=== PATIENT | male | born 1985 | race Caucasian/White ===

== ENCOUNTER 2017-07-27 09:31 | Emergency (ER) | payer OTHER ==
[2017-07-27 09:52] VITALS: TEMP 97.9
[2017-07-27 10:31] LABS: URINE BILIRUBIN NEGATIVE (NEGATIVE); URINE BLOOD NEGATIVE (NEGATIVE); URINE CLARITY Clear (Clear); URINE COLOR Yellow (YELLOW); URINE GLUCOSE (UA) NORMAL (Normal); URINE LEUKOCYTE ESTERASE NEG Leu/uL (Negative); URINE NITRATE NEGATIVE (NEGATIVE); URINE PROTEIN NEGATIVE (NEGATIVE); URINE UROBILINOGEN NORMAL mg/dL (0.2-1.0)
[2017-07-27] MEDS ORDERED: Penicillin G Benzathine 2.4 Mill Unit/4 ml Syr IM ONE ×2 (11:20→12:04)
[2017-07-27] MEDS ORDERED: cefTRIAXone (Rocephin) 250 mg Inj IM STA (11:21)
--- NOTE | 2017-07-27 11:57 | C.PDOC ---
History Of Present Illness 32 y/o male, with history of syphilis, presents to the ER for treatment for possible STD infection. Patient reports that he was diagnosed with syphilis last year. He had partial treatment and his boyfriend had complete treatment. Patient reports that he spent most of the past year in the [place] for personal reasons. He came back last month and had relations with his boyfriend. He is worried that he still has syphilis so he came to the ER. He denies having any lesions, bleeding, and penile discharge. He also denies having any headache, fever, chills, and dysuria. Time Seen by Provider: 07/27/17 09:43 Chief Complaint (Nursing): Male Genitourinary History Per: Patient History/Exam Limitations: no limitations Onset/Duration Of Symptoms: Hrs Current Symptoms Are (Timing): Still Present Severity: Moderate Past Medical History Reviewed: Historical Data, Nursing Documentation, Vital Signs Vital Signs: Last Vital Signs Temp 97.9 F 07/27/17 12:20 Pulse 80 07/27/17 12:20 Resp 16 07/27/17 12:20 BP 139/97 H 07/27/17 12:20 Pulse Ox 97 07/27/17 19:05 - Medical History PMH: Asthma, HTN Surgical History: No Surg Hx - [facility] TETANUS TOXOID ADMINIST (05/11/14) Family History: States: No Known Family Hx - Social History Hx Tobacco Use: Yes Hx Alcohol Use: Yes Hx Substance Use: Yes (marijuana) - Immunization History Hx Tetanus Toxoid Vaccination: No Hx Influenza Vaccination: No Hx Pneumococcal Vaccination: No Review Of Systems Except As Marked, All Systems Reviewed And Found Negative. Constitutional: Negative for: Fever, Chills Genitourinary: Negative for: Dysuria Neurological: Negative for: Headache Physical Exam - Physical Exam Appears: Non-toxic, No Acute Distress Skin: Normal Color, Warm, Other (hands are clear) Head: Atraumatic, Normacephalic Eye(s): bilateral: Normal Inspection, PERRL Nose: Normal Oral Mucosa: Moist Throat: Normal, No Erythema, No Exudate Neck: Supple Chest: Symmetrical Gastrointestinal/Abdominal: Normal Exam, Soft, No Tenderness Extremity: Normal ROM Neurological/Psych: Oriented x3, Normal Speech, Normal Cognition, Normal Motor, Normal Sensation ED Course And Treatment O2 Sat by Pulse Oximetry: 97 (RA) Pulse Ox Interpretation: Normal Medical Decision Making Medical Decision Making: Impression: Possible STD Infection Syphilis vs. GC vs. HIV Plan: --Zithromax 1000 mg PO -- Rocephin - 250 mg IM -- HIV Test Test Results: --HIV Test- Negative Disposition - Disposition Disposition: HOME/ ROUTINE Disposition Time: 11:54 Condition: STABLE Additional Instructions: Please follow up with your doctor or the clinic for infections Disease referral. You need to be treated once a week for 3 weeks. Do not miss this treatment. Call Dr. Rodriguez in 3 hours for your results. Call [phone] Always practice safe sex. Prescriptions: Doxycycline Hyclate 100 mg PO BID #24 capsule Instructions: Sexually Transmitted Diseases (ED) Forms: [facility] (Al[place]ian), General Discharge Instructions - POA Present On Arrival: None - Clinical Impression Clinical Impression: STD exposure - Scribe Statement The provider has reviewed the documentation as recorded by the Sharath Espinoza Provider Attestation: All medical record entries made by the [place] were at my direction and personally dictated by me. I have reviewed the chart and agree that the record accurately reflects my personal performance of the history, physical exam, medical decision making, and the department course for this patient. I have also personally directed, reviewed, and agree with the discharge instructions and disposition.
[2017-07-27 12:21] VITALS: BP 139/97; PULSE 80; RESP 16
[2017-07-27 18:31] VITALS: O2SAT 97
== END 2017-07-27 12:59 | disposition home or self-care (01) ==
LOC: C.ER 09:31
DX: Z20.2 Contact with and (suspected) exposure to infections with a predominantly sexual mode of transmission (principal)
CPT/HCPCS: 81001; 86592; 86703; 96372; 99284; J0561; J0696